=== PATIENT | male | born 1995 | race Caucasian/White ===

== ENCOUNTER 2017-08-12 01:43 | Emergency (ER) | payer BC ==
[2017-08-12 03:11] LABS: ABSOLUTE EOSINOPHILS # (AUTO) 0.3 10^3/uL (0.0-0.6); ABSOLUTE LYMPHOCYTES (AUTO) 3.5 10^3/uL (0.5-4.7); ABSOLUTE MONOCYTES (AUTO) 0.9 10^3/uL (0.1-1.4); ABSOLUTE NEUT (AUTO) 6.5 10^3/uL (1.7-8.2); APPEARANCE,URINE CLEAR; BASOPHILS % (AUTO) 0.3 % (0-2); BILIRUBIN,URINE NEGATIVE (NEGATIVE); COLOR,URINE STRAW; EOSINOPHILS % (AUTO) 2.6 % (0-6); GLUCOSE, URINE NEGATIVE (NEGATIVE); HEMATOCRIT 47.8 % (37.9-51.0); HEMOGLOBIN 16.7 g/dL (13.5-17.0); KETONES,URINE NEGATIVE (NEGATIVE); LEUKOCYTE ESTERASE,URINE TRACE (NEGATIVE); LYMPHOCYTES % (AUTO) 31.3 % (13-45); MEAN CORPUSCULAR VOLUME 89 fl (80-97); MONOCYTES % (AUTO) 7.9 % (3-13); NITRITE,URINE NEGATIVE (NEGATIVE); PLATELET COUNT 223 10^3/uL (150-450); PROTEIN,URINE NEGATIVE (NEGATIVE); RED BLOOD COUNT 5.39 10^6/uL (4.35-5.55); SEGMENTED NEUTROPHILS % (AUTO) 57.9 % (42-78); TOTAL CELLS COUNTED % (AUTO) 100 %; URINE SPECIFIC GRAVITY 1.006; WHITE BLOOD COUNT 11.3 10^3/uL (4.0-10.5)
[2017-08-12 03:42] LABS: URINE AMPHETAMINES SCREEN NEGATIVE; URINE BARBITURATES SCREEN NEGATIVE; URINE BENZODIAZEPINES SCREEN NEGATIVE; URINE MARIJUANA (THC) SCREEN NEGATIVE; URINE PHENCYCLIDINE SCREEN NEGATIVE
[2017-08-12 03:43] LABS: URINE COCAINE SCREEN NEGATIVE; URINE METHADONE SCREEN NEGATIVE
[2017-08-12 04:32] LABS: ALANINE AMINOTRANSFERASE 25 U/L (21-72); ALBUMIN 4.6 g/dL (3.5-5.0); ALKALINE PHOSPHATASE 72 U/L (38-126); ANION GAP 13 (5-19); ASPARTATE AMINO TRANSFERASE 22 U/L (17-59); BILIRUBIN,DIRECT 0.2 mg/dL (0.0-0.4); BILIRUBIN,TOTAL 0.2 mg/dL (0.2-1.3); BLOOD UREA NITROGEN 10 mg/dL (7-20); CALCIUM 10.1 mg/dL (8.4-10.2); CARBON DIOXIDE 28 mmol/L (22-30); CHLORIDE 105 mmol/L (98-107); GLUCOSE 116 mg/dL (75-110); SODIUM 145.9 mmol/L (137-145); TOTAL PROTEIN 7.5 g/dL (6.3-8.2)
[2017-08-12 04:36] LABS: ALCOHOL < 10 mg/dL (NONE DETECTED)
--- NOTE | 2017-08-12 05:39 | ER Document Report ---
ED General - General Chief Complaint: Altered Mental Status Stated Complaint: POSSIBLE DRUG WITHDRAWL Time Seen by Provider: 08/12/17 04:38 Notes: Patient is a 22-year-old male comes emergency department for chief complaint of acting strangely. Mom states that over the past day he has become suddenly bizarre, he approaches strangers randomly unlike he does previously, he has made bizarre statements at home, he appears confused, she states that she thinks he is on a substance. She states he reports he took Adderall, patient denied taking anything else. When asked how he is feeling patient states that "not everything is right, but not all the time". He tells me that he thinks his dad is "80s", he will not tell me more in regards to this. He states he was getting good grades. He is going to school at [employer] and is temporarily home with his family. Family states he has not slept well over the past couple of days. No head injury, no fever, no history of substance abuse, no psychiatric family history. Patient denies homicidal ideations or suicidal ideations, denies history of either, however he states he did cut himself last night on his arm. He points to his left forearm where he cut himself although no wound is apparent. - Related Data Allergies/Adverse Reactions: No Known Allergies Allergy (Unverified 08/12/17 01:59) Past Medical History - General Information source: Patient - Social History Smoking Status: Never Smoker Frequency of alcohol use: Social Drug Abuse: None Lives with: Family Family History: Reviewed & Not Pertinent Patient has suicidal ideation: No Patient has homicidal ideation: No - Medical History Medical History: Negative Renal/ Medical History: Denies: Hx Peritoneal Dialysis Surgical Hx: Negative - Immunizations Immunizations up to date: Yes Hx Diphtheria, Pertussis, Tetanus Vaccination: Yes Review of Systems - Review of Systems Constitutional: No symptoms reported EENT: No symptoms reported Cardiovascular: No symptoms reported Respiratory: No symptoms reported Gastrointestinal: No symptoms reported Genitourinary: No symptoms reported Male Genitourinary: No symptoms reported Musculoskeletal: No symptoms reported Skin: No symptoms reported Hematologic/Lymphatic: No symptoms reported Neurological/Psychological: See HPI Physical Exam - Vital signs Vitals: Temp Pulse Resp BP Pulse Ox 98.5 F 88 20 165/90 H 97 08/12/17 02:00 08/12/17 02:00 08/12/17 02:00 08/12/17 02:00 08/12/17 02:00 Interpretation: Normal - General General appearance: Appears well, Alert In distress: None - HEENT Head: Normocephalic, Atraumatic Eyes: Normal Conjunctiva: Normal Extraocular movements intact: Yes Eyelashes: Normal Pupils: PERRL, Dilated Ears: Normal Mouth/Lips: Normal Mucous membranes: Normal Pharynx: Normal Neck: Normal - Respiratory Respiratory status: No respiratory distress Chest status: Nontender Breath sounds: Normal Chest palpation: Normal - Cardiovascular Rhythm: Regular Heart sounds: Normal auscultation Murmur: No - Abdominal Inspection: Normal Distension: No distension Bowel sounds: Normal Tenderness: Nontender Organomegaly: No organomegaly - Back Back: Normal, Nontender - Extremities General upper extremity: Normal inspection, Nontender, Normal color, Normal ROM , Normal temperature General lower extremity: Normal inspection, Nontender, Normal color, Normal ROM , Normal temperature, Normal weight bearing. No: Severino's sign - Neurological Neuro grossly intact: Yes Cognition: Normal Orientation: AAOx4 Logan Coma Scale Eye Opening: Spontaneous Logan Coma Scale Verbal: Oriented Logan Coma Scale Motor: Obeys Commands Logan Coma Scale Total: 15 Speech: Normal Motor strength normal: LUE, RUE, LLE, RLE Sensory: Normal - Psychological Associated symptoms: Labile - Patient suddenly serious, then laughing, then concerned, has very switched mood changes, Tangential speech. No: Normal affect - Bizarre affect, at times very flat, and other times laughing loudly, Aggressive, Agitated, Angry, Tactile hallucinations, Uncooperative - Skin Skin Temperature: Warm Skin Moisture: Dry Skin Color: Normal Course - Re-evaluation Re-evalutation: Patient has difficulty answering questions, however he can answer who he is, his location, but his thought processes very disorganized. He randomly laughs unexpectedly, he makes bizarre statements about delusions such as thinking his dad is "80s", he thinks he cut himself on his arm when he did not. His physical exam is unremarkable. His vital signs are unremarkable except for mild hypertension. His workup is unremarkable including negative drug screen. I discussed with patient, he states he is willing to stay and be seen by the mental health team, I discussed with parents in detail. His behavior and interaction are suggestive of acute psychotic behavior suggesting early schizophrenia. I informed parents that this is absolutely not definitive at this point, he needs to be evaluated by mental health, this still could be a drug that patient took that is not showing up on the drug screen and is not apparent, it still could be another etiology. Parents state understanding, they state agreement with mental health evaluation and pending management plan. Discussed with Dr. Palma who agrees with 24 hour hold to be placed, and this was discussed with parents as well. - Vital Signs Vital signs: Temp Pulse Resp BP Pulse Ox 98.5 F 88 20 165/90 H 98 08/12/17 02:00 08/12/17 02:00 08/12/17 02:00 08/12/17 02:00 08/12/17 05:45 - Laboratory Result Diagrams: 08/12/17 02:57 08/12/17 02:57 Laboratory results interpreted by me: 08/12/17 08/12/17 08/12/17 02:57 02:57 02:57 WBC 11.3 H Sodium 145.9 H Glucose 116 H Urine Urobilinogen 2.0 H Ur Leukocyte Esterase TRACE H Discharge - Discharge Clinical Impression: Disorganized thought process, Delusions, Bizarre behavior Condition: Stable Disposition: PSYCH HOSP/UNIT
[2017-08-12] MEDS ORDERED: NICOTINE 7 MG/24 HR PATCH.TD24 TD ONE (07:08)
--- NOTE | 2017-08-12 09:00 | EKG REPORT ---
SEVERITY:- BORDERLINE ECG - SINUS RHYTHM : Confirmed by: Pedro Weber MD 12-Aug-2017 09:00:10
--- NOTE | 2017-08-12 09:57 | ER Document Report ---
Doctor's Note Notes: 08/12/17 09:55 This is a follow-up evaluation: Primary diagnosis-acute psychosis, hallucination, restless Patient is here for the above reason, has been doing well, currently has --- complaint. On examination-vitals reviewed in the chart. General exam: Alert oriented 3 not in any acute distress HEENT: Normocephalic atraumatic pupils are equal reactive to light, Lungs-clear breath sounds no rales or wheezing. Cardiovascular system: Normal S1-S2 no murmurs. Gastrointestinal: Normal breath sounds, no organomegaly positive bowel sounds. Genitourinary: Skin: No lesions noted, no rash Psychiatric: He is pacing around walking, albeit, in by his father, he says he is devil. Acutely hallucinating Diagnoses: Acute psychosis Plan: [facility] and Andrew were ordered.
[2017-08-12] MEDS: BENZTROPINE MESYLATE INJ 2 MG/2 ML AMPULE IM SCH (10:01)
[2017-08-12] MEDS: ZIPRASIDONE MESYLATE INJ/PF 20 MG SDV IM SCH ×2 (10:01→17:55)
[2017-08-12] MEDS: HALOPERIDOL LACTATE INJ 5 MG/1 ML VIAL IV SCH ×2 (10:02→17:55)
--- NOTE | 2017-08-12 15:00 | PSYCHOLOGICAL NOTE ---
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 Patient admitted to using the following substances lately : Cocaine, Crack, Acid, Shrooms, Oscar, and Robitussin DM. He said he did the Robitussin DM (an entire bottle plus half of another) last night but was unable to identify last use of the other substances. His UDS was negative however Acid , Psilocybin aka Mushrooms and Robitussin DM would not show up as it is not something tested for). He had tangential thought processes and flight of ideas ( randomly talked about the Matrix and it being a cool movie, that he was driving stick then didn't finish story) . His pupils were dilated. He laughed at inappropriate times. He noted a diagnosis of ADHD, commented he made this happen on purpose and had told attending nurse he used Adderall but was vague about being prescribed/overusing/obtaining medications that is not his. His speech was somewhat slurred at times, he was unsteady on his feet but well groomed. He admitted to SI (passive thoughts often) with no attempt or gestures ever. He stated he loves his parents and they love him then out of nowhere said "I will kill my parents in 10 years," then went on to another topic as if he never said it. Patient gave verbal consent to speak with parents. Spoke to them separately. They noted concern for possible cocaine, marijuana and acid use. Father stated patient told him he had taken a bottle or more of Robitussin DM. They identified patient is a Senior in College at [employer]. He started out college with good grades but by second semester his freshman year grades began plummeting. Since then they have been up and down. Father stated he picked patient up , patient seemed "off" and erratic "making odd comments like dad the advice you gave/give is on." Father stated the other day father, patient and grandfather went golfing, patient managed self but at the end when grandfather said the outing was nice it was like being in heaven patient turned to father and said "Dad are we in this world." Ftaher noted no sleep the past 2 days likely longer. Parents denied family history of MH. They stated when patient was younger he had some depression but was never medicated. Diagnosis: Substance Induced Psychotic Disorder (no code due to substance being Robitussin DM) Impression/Plan: Recommendation to maintain 24 hour IVC petition. Presentation and behavior is felt to be due to Robo-tripping (drinking an entire bottle or more of Robitussin DM for hallucinogenic effect) and other drug use. Will reassess in AM to see if psychosis has lessened and/or cleared up. Consulted with Dr. Antonio regarding the management and care of patient. ED Physician in agreement with recommendations. Medication recommendations made by the psychiatric medical provider, Dr. Cayden MILLER, includes: Haldol 10MG IM twice a day for psychosis Cogentin 1MG IM daily to curb potential tremors from antipsychotic Geodon 20MG IM every 6 hours as needed for additional agitation, psychosis
[2017-08-13] MEDS: ZIPRASIDONE MESYLATE INJ/PF 20 MG SDV IM SCH ×3 (03:36→09:36)
[2017-08-13] MEDS: BENZTROPINE MESYLATE INJ 2 MG/2 ML AMPULE IM SCH (09:31)
[2017-08-13] MEDS: HALOPERIDOL LACTATE INJ 5 MG/1 ML VIAL IV SCH (09:33)
[2017-08-13 09:39] VITALS: BP 143/76
--- NOTE | 2017-08-13 09:44 | ER Document Report ---
Doctor's Note Notes: 08/13/17 09:43 This is a follow-up evaluation: Primary diagnosis-acute psychosis, hallucination, restless. Caused by overdose of Robitussin. He took a bottle and a half prior to this episode. With a history of other substance abuse. Patient is here for the above reason, has been doing well, currently has --- complaint. On examination-vitals reviewed in the chart. General exam: Alert oriented 3 not in any acute distress HEENT: Normocephalic atraumatic pupils are equal reactive to light, Lungs-clear breath sounds no rales or wheezing. Cardiovascular system: Normal S1-S2 no murmurs. Gastrointestinal: Normal breath sounds, no organomegaly positive bowel sounds. Genitourinary: Skin: No lesions noted, no rash Psychiatric: He is pacing around walking, albeit, in by his father, he says he is devil. Acutely hallucinating Diagnoses: Acute psychosis Plan: Once cleared by mental health, to DC home. 08/13/17 14:12 As the rounding physician for our psychiatric patients, I have reviewed the chart, vitals, lab work. Patient has been examined and noted to be .
[2017-08-13] MEDS ORDERED: VENLAFAXINE HCL 37.5 MG CAP.SR.24H PO ONE ×2 (11:20→13:30)
--- NOTE | 2017-08-13 14:15 | ER Document Report ---
ED General - General Chief Complaint: Altered Mental Status Stated Complaint: POSSIBLE DRUG WITHDRAWL Time Seen by Provider: 08/12/17 04:38 - Related Data Allergies/Adverse Reactions: No Known Allergies Allergy (Unverified 08/12/17 01:59) Past Medical History - General Information source: Patient - Social History Smoking Status: Never Smoker Frequency of alcohol use: Social Drug Abuse: None Lives with: Family Family History: Reviewed & Not Pertinent Patient has suicidal ideation: No Patient has homicidal ideation: No - Medical History Medical History: Negative Renal/ Medical History: Denies: Hx Peritoneal Dialysis Surgical Hx: Negative - Immunizations Immunizations up to date: Yes Hx Diphtheria, Pertussis, Tetanus Vaccination: Yes Physical Exam - Vital signs Vitals: Temp Pulse Resp BP Pulse Ox 98.5 F 88 20 165/90 H 97 08/12/17 02:00 08/12/17 02:00 08/12/17 02:00 08/12/17 02:00 08/12/17 02:00 Course - Vital Signs Vital signs: Temp Pulse Resp BP Pulse Ox 98.6 F 79 18 143/76 H 96 08/13/17 09:38 08/13/17 09:38 08/13/17 09:38 08/13/17 09:38 08/13/17 09:38 - Laboratory Result Diagrams: 08/12/17 02:57 08/12/17 02:57 Laboratory results interpreted by me: 08/12/17 08/12/17 08/12/17 02:57 02:57 02:57 WBC 11.3 H Sodium 145.9 H Glucose 116 H Urine Urobilinogen 2.0 H Ur Leukocyte Esterase TRACE H Discharge - Discharge Clinical Impression: Disorganized thought process, Delusions, Bizarre behavior Condition: Stable Disposition: HOME, SELF-CARE Additional Instructions: Overdose You have taken more medication than you should have. After your evaluation and care, it is felt that your overdose is not likely to be harmful or of any significant consequences to you and you are being discharged. In the future, you should be careful not to take more medications than what is prescribed for you. Although your overdose does not seem to be of any danger to you at this time, if you develop any unusual or unexpected symptoms after your discharge, you should return to the Emergency Department immediately for re-evaluation. LSD (Robitussin which has similar effects to LSD) LSD is a drug that alters sensory perceptions. It causes decreased "sense of person" with visual illusions. Occasionally, senses become mixed, such as "seeing" musical sounds. The effects of LSD usually last several hours. However, in some people LSD causes permanent psychosis. "Flashbacks" (repeat effects occurring later) are common, especially in frequent users. High doses of LSD cause psychosis, delusions, and heat stroke. Even "normal " doses of LSD can be dangerous because you may act irrationally under the influence. There's also the risk that you'll suffer permanent mental disease. There is no antidote for LSD. We observe until it seems safe for you to be at home. Treatment programs are available to help you stay off drugs long- term. Follow up: You have been linked to [facility] for voluntary inpatient detox /rehab. They will complete the rest of the referral process and let you know accepting information. Prescriptions: Venlafaxine HCl ER [Effexor Xr 37.5 mg Cap.sr] 37.5 mg PO DAILY #30 cap.sr.24h Referrals: [facility] [Outside] - Follow up as needed
--- NOTE | 2017-08-13 17:13 | PSYCHOLOGICAL NOTE ---
Psych Note - Psych Note Psych Note: Reason for consult: 24 hour IVC Petition, Acute psychosis, Broken thought process, delusional thinking Contact permission: Father Romaine and Mother Venessa [phone] Patient is a 22 year old male who is in the ED for likely Robitussin tripping which resulted in an acute psychosis. Today he is groggy and somewhat lethargic but not in active psychosis. He stated he felt better just tired. He stated he was in the ED because he went crazy because he was narcissistic. He commented I needed to go crazy to be fine. He stated he sometimes does drugs to make him feel normal. He admitted he took 1.5 bottles of Robitussin the day before yesterday. He stated he recalled events from yesterday however it seemed he remembered his version and often needed to hear someone else's version before recalling events. He denied HI/SI. He acknowledged a couple break ups while at college that had been stressful. Parents reported patient slept well. The stated he seemed to have no remorse , laughing at off times and being brutally honest. They described the old him as quiet, laid back, thoughtful, smart and rational. [facility] stated they are making a referral to the [facility] in [place]. Diagnosis: Substance Induced Psychotic Disorder (no code due to substance being Robitussin DM) 311 (F32.9) Unspecified Depressive Disorder Impression/Plan: Patient is cleared from acute psychiatric services. Recommendation to let the 24 hour IVC Petition lapse or rescind. Linked patient to [facility] ([facility]intake [facility]) for voluntary SA rehabilitation. Given patient minimal psychiatric history (per patient ADHD which he said he faked and per parents minimal depression when he was younger) and reported polysubstance use recently (specifically the Robo tripping aka taking an entire bottle of Robitussin or more for hallucinogenic desire) it is felt this was an acute psychosis was due to overtaking Robitussin. Provided patient and parents with outpatient resource sheet which starred [facility], [facility] [place] and [facility] for medication management (encouraged them to call one of these places first thing in the morning to schedule a follow up appointment), as well as highlighted [facility] numbers (provided psycho education on how [facility] works). Consulted with Dr. Antonio regarding the management and care of patient. ED Physician in agreement with exception of medication dosage. Medication recommendations made by the psychiatric medical provider, Dr. Cayden MILLER, include: Discontinue Haldol 10MG IM twice a day for psychosis Discontinue Cogentin 1MG IM daily to curb potential tremors from antipsychotic Discontinue Geodon 20MG IM every 6 hours as needed for additional agitation, psychosis The above were utilized to assist patient through likely substance induced psychosis and to sleep Add Effexor 37.5MH twice a day for depression (ED Physician did Effexor XR 37.5 QD) Patient got one time dose in ED and was provided with month script (parents to have control over medication and administration)
== END 2017-08-13 14:30 | disposition home or self-care (01) ==
LOC: ER 01:43
DX: R41.82 Altered mental status, unspecified (principal); F22 Delusional disorders; F19.959 Other psychoactive substance use, unspecified with psychoactive substance-induced psychotic disorder, unspecified; F91.9 Conduct disorder, unspecified
CPT/HCPCS: 93005; 96376; 99285; 96372; 96374; 36415; 80307 ×2; 83735; 85025; 80053; 81001; 93010; J0515 ×2; J3490 ×2; J1630; J3486 ×2

== ENCOUNTER 2017-08-13 18:12 | Emergency (ER) | payer BC ==
--- NOTE | 2017-08-13 18:54 | ER Document Report ---
ED General - General Mode of Arrival: Ambulatory Information source: Patient TRAVEL OUTSIDE OF THE [place] IN LAST 30 DAYS: No <RUDY CABEZAS - Last Filed: 08/13/17 21:04> <RENALDO CARL - Last Filed: 08/13/17 23:51> - General Chief Complaint: Psych Problem Stated Complaint: BEHAVIOR PROBLEM Time Seen by Provider: 08/13/17 18:17 Notes: Patient is a 22 year old male presenting to the emergency department complaining of lockjaw. Patient states he was feeling fine at home when he had a sudden of lockjaw while in the car with his grandfather. Patient states he stated he wanted to jump out of the car so 'everything would be better'. When asked to elaborate, patient does not do so. He states he believes jumping out of a car and coming to the emergency room as well as having sexual intercourse would alleviate his lockjaw symptoms. Patient denies any SI, further stating the fact he wanted to jump out of the car was not because he wanted to commit suicide. Patient states receiving Benadryl via IV did alleviate his symptoms. Patient was last seen in the emergency department yesterday and discharged this morning for taking a bottle and a half of Robitussin and admits to taking DXM for recreational purposes. Patient states he has not taken any since discharge. (RUDY CABEZAS) - Related Data Allergies/Adverse Reactions: No Known Allergies Allergy (Unverified 08/12/17 01:59) Past Medical History - General Information source: Patient - Social History Smoking Status: Current Every Day Smoker Cigarette use (# per day): Yes Chew tobacco use (# tins/day): Yes - occasional Frequency of alcohol use: Social Drug Abuse: Prescription drugs - DXM Family History: Reviewed & Not Pertinent - Immunizations Immunizations up to date: Yes Hx Diphtheria, Pertussis, Tetanus Vaccination: Yes <RUDY CABEZAS - Last Filed: 08/13/17 21:04> Review of Systems - Review of Systems Constitutional: No symptoms reported EENT: No symptoms reported Cardiovascular: No symptoms reported Respiratory: No symptoms reported Gastrointestinal: No symptoms reported Genitourinary: No symptoms reported Male Genitourinary: No symptoms reported Musculoskeletal: See HPI Skin: No symptoms reported Hematologic/Lymphatic: No symptoms reported Neurological/Psychological: See HPI -: Yes All other systems reviewed and negative <RUDY CABEZAS - Last Filed: 08/13/17 21:04> Physical Exam <RUDY CABEZAS - Last Filed: 08/13/17 21:04> <RENALDO CARL - Last Filed: 08/13/17 23:51> - Vital signs Vitals: Temp Pulse Resp BP Pulse Ox 98.7 F 68 16 139/73 H 99 08/13/17 18:22 08/13/17 18:22 08/13/17 18:22 08/13/17 18:22 08/13/17 18:22 - Notes Notes: GENERAL: Alert, interacts well. No acute distress. No evidence of a dystonic reaction. HEAD: Normocephalic, atraumatic. EYES: Pupils equal, round, and reactive to light. Extraocular movements intact. ENT: Oral mucosa moist, tongue midline. NECK: Full range of motion. Supple. Trachea midline. LUNGS: Clear to auscultation bilaterally, no wheezes, rales, or rhonchi. No respiratory distress. HEART: Regular rate and rhythm. No murmurs, gallops, or rubs. ABDOMEN: Soft. Non-distended. Bowel sounds present in all 4 quadrants. EXTREMITIES: Moves all 4 extremities spontaneously. Radial and dorsalis pedis pulses 2/4 bilaterally. NEUROLOGICAL: Alert and oriented x3. Normal speech. PSYCH: Flat affect. Poor insight. SKIN: Warm, dry, and normal turgor. (RUDY CABEZAS) Course - Laboratory Result Diagrams: 08/13/17 18:30 08/13/17 18:30 <RUDY CABEZAS - Last Filed: 08/13/17 21:04> - Laboratory Result Diagrams: 08/13/17 18:30 08/13/17 18:30 <RENALDO CARL - Last Filed: 08/13/17 23:51> - Re-evaluation Re-evalutation: 08/13/17 21:35 CBC unremarkable, CMP grossly unremarkable, salicylates and acetaminophen and alcohol are all undetectable. Patient complained multiple times while he was here that he felt like his jaw was locking up again however time that I examined him he was able to fully open and close his mouth, had no signs of lockjaw, exam of his mouth did not show any dental decay, erythema or injury. He had no difficulty extruding his tongue. No evidence of dystonic reaction. Patient was evaluated by Dr. Antonio over the phone. Patient actually ended up hanging up on Dr. Antonio. I discussed the case with Dr. Antonio as well as with the patient's father. Patient is not suicidal, patient even admits that the only reason why he threatened to jump out of the car was to get his way in stopping to get cigarettes and see his grandparents. Patient states that he does not want to hurt himself he is just prepared to do whatever he needs to do to get his father taking given. We did discuss with the father that the patient is being intentionally manipulative. I discussed with the father that the patient needs counseling but does not meet inpatient commitment criteria. I did suggest that given his history of drug abuse and he has no stability of behavior that an inpatient drug rehab program may be the best bet. Father states that they are supposed to hear about a bed tomorrow morning. After much discussion Dr. Antonio and I did agree that the patient could have a single dose of Geodon here for sedation so that he would sleep tonight while awaiting a bed at an inpatient drug rehab facility tomorrow. (RENALDO CARL) - Vital Signs Vital signs: Temp Pulse Resp BP Pulse Ox 97.9 F 62 20 138/66 H 100 08/13/17 22:15 08/13/17 22:15 08/13/17 22:15 08/13/17 21:26 08/13/17 22:15 - Laboratory Laboratory results interpreted by me: 08/13/17 18:30 Total Bilirubin < 0.1 L Salicylates < 1.0 L Acetaminophen < 10 L - EKG Interpretation by Me Additional EKG results interpreted by me: 08/13/17 21:39 EKG shows sinus rhythm rate 74, normal axis, prolonged QT interval at a rate of 524 corrected, no ST segment elevations or depressions, no T-wave inversions with the exception of one isolated T-wave inversion in lead III per my interpretation. (RENALDO CARL) Discharge <RUDY CABEZAS - Last Filed: 08/13/17 21:04> <RENALDO CARL - Last Filed: 08/13/17 23:51> - Discharge Clinical Impression: Drug addiction, Manipulative behavior Condition: Stable Disposition: HOME, SELF-CARE Additional Instructions: You have been given a single dose of Geodon. This will not cause any dystonic reaction (hossein). Today did not see any evidence of a dystonic reaction either. If you show evidence of dystonic reaction (being unable to open your mouth, having your tongue sticking out being able to put unable to put it back in) you may take up to 50 mg of Benadryl every 6 hours as needed. You should continue to pursue inpatient drug rehab treatment. Referrals: [facility] [Provider Group] - Follow up as needed [facility] [Provider Group] - Follow up as needed Scribe Attestation: 08/13/17 23:51 I personally performed the services described in the documentation, reviewed and edited the documentation which was dictated to the scribe in my presence, and it accurately records my words and actions. (RENALDO CARL) Scribe Documentation - Scribe Written by Mary:: Mary Draper, 08/13/2017 19:09 acting as scribe for :: Navin <RUDY CABEZAS - Last Filed: 08/13/17 21:04>
[2017-08-13 19:13] LABS: ABSOLUTE EOSINOPHILS # (AUTO) 0.2 10^3/uL (0.0-0.6); ABSOLUTE LYMPHOCYTES (AUTO) 1.8 10^3/uL (0.5-4.7); ABSOLUTE MONOCYTES (AUTO) 0.6 10^3/uL (0.1-1.4); ABSOLUTE NEUT (AUTO) 6.7 10^3/uL (1.7-8.2); BASOPHILS % (AUTO) 0.4 % (0-2); EOSINOPHILS % (AUTO) 1.6 % (0-6); HEMATOCRIT 44.1 % (37.9-51.0); HEMOGLOBIN 15.3 g/dL (13.5-17.0); LYMPHOCYTES % (AUTO) 19.6 % (13-45); MEAN CORPUSCULAR HEMOGLOBIN 31.1 pg (27.0-33.4); MEAN CORPUSCULAR HGB CONC 34.8 g/dL (32.0-36.0); MEAN CORPUSCULAR VOLUME 89 fl (80-97); MONOCYTES % (AUTO) 6.4 % (3-13); PLATELET COUNT 199 10^3/uL (150-450); RED BLOOD COUNT 4.93 10^6/uL (4.35-5.55); RED CELL DISTRIBUTION WIDTH 13.9 % (11.5-14.0); TOTAL CELLS COUNTED % (AUTO) 100 %; WHITE BLOOD COUNT 9.3 10^3/uL (4.0-10.5)
[2017-08-13 19:23] LABS: ALANINE AMINOTRANSFERASE 23 U/L (21-72); ALBUMIN 3.9 g/dL (3.5-5.0); ALKALINE PHOSPHATASE 69 U/L (38-126); ANION GAP 11 (5-19); ASPARTATE AMINO TRANSFERASE 29 U/L (17-59); BLOOD UREA NITROGEN 9 mg/dL (7-20); CALCIUM 9.6 mg/dL (8.4-10.2); CARBON DIOXIDE 29 mmol/L (22-30); CHLORIDE 103 mmol/L (98-107); GLUCOSE 88 mg/dL (75-110); POTASSIUM 3.6 mmol/L (3.6-5.0); SODIUM 143.1 mmol/L (137-145); TOTAL PROTEIN 6.5 g/dL (6.3-8.2)
[2017-08-13 19:24] LABS: BILIRUBIN,TOTAL < 0.1 mg/dL (0.2-1.3)
[2017-08-13 19:25] LABS: ACETAMINOPHEN < 10 ug/mL (10-30); ALCOHOL < 10 mg/dL (NONE DETECTED); SALICYLATE < 1.0 mg/dL (2.0-20.0)
--- NOTE | 2017-08-13 21:00 | PSYCHOLOGICAL NOTE ---
Psych Note - Psych Note Psych Note: Spoke with Patient who returned this evening after being discharged claiming he had lockjaw. He reported the Effexor was giving him lockjaw. When explained he received cogentin over the weekend and he had no difficulties he said he needed more. When I asked what he was hoping to achieve by returning to the ED he stated "to show my parents I could take care of myself." Further explanation elicited "by taking my Adderall." When advised he stated in his previous admission this weekend that he bought his Adderall off the street, he stated " my Ritalin" then stated "no Vyvanse." When asked about his inconsistencies, he reported he was prescribed the medication from "the [place]." Review of the [place] Controlled Substance Registry revealed the Patient received a 30 day prescription in June 2017 from a physician in [facility] for methylphenidate, and previous to that 30 day prescriptions for Vyvanse twice in 2015 and twice in 2014 from a psychiatrist in [facility]. Patient reported he obtained these prescriptions because he "needed something to help him get through when he needed to get high." As such, he reported returning to the hospital this evening so the ED physician could "give me my adderall, vyvanse, and ritalin." He acknowledged it was only to get high and it was unlikely the physician would prescribe such medication for this purpose. The patient chose to end the conversation at this time. Patient endorsed a history of substance abuse dating back at least 5 years. He reported using cocaine, LSD, mushrooms, marijuana, Triple C's, amphetamines, etc. He denied any past or present legal charges or inpatient / outpatient mental health visits. He reported addiction to amphetamines dating back many years. He reported manipulating the ED physician this morning for an Adderall prescription even though he does not need Adderall. He denied a diagnoses of ADHD and reported he takes the medication to get high. Spoke with Romaine, patient's father who reported the patient has been very manipulative all day. He reported he has been trying to obtain drugs and giving ultimatums since being discharged earlier this morning. He reported the Patient is not himself and is acting "psychotic." He indicated they just became aware of Patient's drug use this weekend. He is a senior in college and supposed to be graduating this month. Romaine reported he is concerned the Patient is not thinking correctly and is a danger to self as a result. Romaine was advised of the different options Patient was alert and oriented to person, place, time, and circumstance. Mood was flat and manipulative, and presentation was self-serving. He denied suicidal / homicidal ideation, intent or plan, and denied a history of the same. He denied auditory / visual hallucinations and no delusions were noted. Thought processes were linear, rational, and organized. Conversational speech was within normal limits for rate, tone, and prosody. Intellectual abilities were estimated within the average range. Attention / concentration was fair. Insight, judgment, and impulse control was poor. 1. Polysubstance Dependence Use Disorder Impression / Plan: Patient is clear from acute psychiatric services. Patient denied suicidal / homicidal ideation, intent and plan. He initially reported lockjaw but given he was able to talk appropriately without difficulty or discomfort demonstrates inconsistency with known presentation for lockjaw. Patient' noted several times throughout interview he was seeking amphetamines to get high and there was no medical reason for his request. He reported he returned to the ED specifically for this purpose. Notably, he became upset when advised it was unlikely the ED physician would prescribe these medication for his specific reasons. Collateral with Patient's father revealed concern for Patient, but he was reminded he was provided resources this morning at discharge and [facility] inpatient services was in process and moving forward likely tomorrow after the holiday. He was advised the Patient the Patient was acting manipulative prior to his arrival, meaning drug seeking, but was well oriented, linear, and organized in his presentation. Father indicated the Patient was presenting as "psychotic" but told the Patient was acting for the Father's benefit as a means to attempt to manipulate the father to get what he wanted. In fact, the Patient told the father he would jump out of the car on the way home if he didn't get what he wanted. The father was advised to not place the Patient in his car, as the Patient previously advised he was not suicidal, did not want to harm himself or others, just wanted to get high. Several conversations took place between this clinician and the ED Provider and both were in agreement that Patient was safe to discharge, provided again with outpatient resources to include mobile crisis services, and [facility] services info ([facility]), with understanding the Patient would likely go to inpatient tomorrow.
[2017-08-13] MEDS ORDERED: ZIPRASIDONE MESYLATE INJ/PF 20 MG SDV IM ONE (21:23)
--- NOTE | 2017-08-13 22:29 | EKG REPORT ---
SEVERITY:- ABNORMAL ECG - SINUS RHYTHM PROLONGED QT INTERVAL : Confirmed by: Floyd Mata 13-Aug-2017 22:27:39
[2017-08-13 23:35] VITALS: BP 138/66
== END 2017-08-13 22:20 | disposition home or self-care (01) ==
LOC: ER 18:12
DX: F19.20 Other psychoactive substance dependence, uncomplicated (principal); F60.89 Other specific personality disorders; F91.9 Conduct disorder, unspecified; F17.210 Nicotine dependence, cigarettes, uncomplicated
CPT/HCPCS: 93005; 99285; 96372; 36415; 80307 ×3; 85025; 80053; 93010; J3486